=== PATIENT | female | born 1995 | race Caucasian/White ===

== ENCOUNTER 2023-08-18 22:38 | Inpatient (IN) | payer BC ==
[~2023-08-18] VITALS: Ht 154.9 cm; Wt 68.2 kg
[~2023-08-18 22:38] MED LIST: IBU600 MG PO; NO HOME MEDICATIONS; PRENATAL TABLET PO; VALTREX 50500 MG/TAB PO
--- NOTE | 2023-08-18 22:40 | NUR ---
PATIENT AMBULATORY TO UNIT WITH SPOUSE. PATIENT STATES SHE FELT LIKE HER WATER BROKE AROUND 2129 WITH CLEAR FLUID. DENIES VAGINAL BLEEDING BUT "THINKS SHE MIGHT BE HAVING CONTRACTIONS".PATIENT CHANGED INTO HOSPITAL GOWN. [id number].
[2023-08-18] MEDS ORDERED: LR 1,000 ML IV PRN (23:00)
--- NOTE | 2023-08-18 23:10 | NUR ---
2310-NURSE AT BEDSIDE STARTING IV. MONITOR TRACING MOTHER HEART RATE. MONITORS ADJUSTED.
[2023-08-18 23:15] VITALS: BP 121/70; PULSE 89; TEMP 98.2
[2023-08-18] MEDS ORDERED: LR & Oxytocin 500 ML IV SCH (23:30)
[2023-08-18] MEDS ORDERED: LR 1,000 ML IV SCH (23:30)
[2023-08-18 23:41] LABS: BASO % 0.3 % (0.0-2.0); EOS # 0.1 K/mm3 (0.0-0.7); EOS % 0.7 % (0.0-4.0); GRAN # 6.4 K/mm3 (1.4-6.5); GRAN % 62.3 % (42.2-75.2); HEMATOCRIT 37.9 % (37.0-47.0); HEMOGLOBIN 12.7 g/dl (12.5-16.0); LYMPH # 2.9 K/mm3 (1.2-3.4); MEAN CELL VOLUME 92 fl (80.0-100.0); MEAN CORPUSCULAR HEMOGLOBIN 31 pg (27-31); MEAN CORPUSCULAR HGB CONC 34 g/dl (33.0-37.0); MONO # 0.8 K/mm3 (0.1-0.6); MONO % 8.1 % (1.7-9.3); PLATELET COUNT 244 K/mm3 (130-400); RED BLOOD COUNT 4.12 M/mm3 (4.10-5.30); REDCELL DISTRIBUTION WIDTH-CV 12.9 % (11.5-14.5)
[2023-08-19] VITALS (39 sets, daily range): BP systolic 91–149; BP diastolic 53–97; PULSE 61–122; TEMP 97.6–98.2
--- NOTE | 2023-08-19 02:50 | NUR ---
0235- PATIENT AMBLATORY ON UNIT 0250- PATIENT VOIDED AND ASSISTED BACK TO BED. [id number]
[2023-08-19] MEDS ORDERED: ROPivacaine PF 0.2% 200 ML IV ONE (05:06)
--- NOTE | 2023-08-19 05:30 | NUR ---
0508- PATIENT SITTING ON EDGE OF BED. PULSE OX APPLIED. 0513- TRUDY LILLY AT BEDSIDE EXPLAINING PROCEDURE TO PATIENT. 0523- TEST DOSE ADMINISTERED BY TRUDY LILLY. 0530- PATIENT ASSISTED TO LEFT WEDGE. PLAN OF CARE EXPLAINED TO PATIENT AND SPOUSE. QUESTIONS INVITED AND ANSWERED.
[2023-08-19] MEDS ORDERED: ePHEDrine 50 MG/10 ML VIAL IV PRN (05:45)
[2023-08-19] MEDS ORDERED: Ondansetron 4 MG/2 ML VIAL IV PRN (05:45)
[2023-08-19] MEDS ORDERED: Naloxone 0.4 MG/ML VIAL IV PRN ×2 (05:45→10:45)
[2023-08-19] MEDS ORDERED: diphenhydrAMINE 50 MG/ML 1 ML VIAL IV PRN (05:45)
[2023-08-19] MEDS ORDERED: diphenhydrAMINE 25 MG CAP PO PRN (05:45)
--- NOTE | 2023-08-19 06:45 | NUR ---
DUE TO PT POSITION, TOCO TRACING WAS DIFFICULT. TOCO READJUSTED SEVERAL TIMES.
--- NOTE | 2023-08-19 08:34 | NUR ---
0825- DR MCGEE ON UNIT AND AT BEDSIDE. SVE PT COMPLETE. 0831- PT BEGAN PUSHING. 0834- SPONATNEOUS VAGINAL DELIVERY OF A VIABLE BABY BOY DELIVERED BY DR DAILEY. NUCHUL X1. BABY WAS PLACED ON MOM'S CHEST AND CARE OF BABY WAS TAKEN OVER BY NURSERY NURSE SHERWIN. FOB CUT THE CORD. BABY WAS DRIED AND STIMULATED. 0838- SPONTANEOUS DELIVERY OF THE PLACENTA. PITOCIN STARTED PER PROTOCOL. SECOND DEGREE REPAIR BY DR MCGEE. BLEEDING MINIMAL. VS STABLE. QBL 100.
[2023-08-19] MEDS ORDERED: Magnes Hydrox (MOM) 80 MG/ML 30 ML CUP PO PRN (09:00)
[2023-08-19] MEDS ORDERED: Prenatal Vitamins/Iron/FA TAB PO SCH (09:00)
[2023-08-19] MEDS ORDERED: Loratadine 10 MG TAB PO PRN (09:00)
[2023-08-19] MEDS ORDERED: Ibuprofen 600 MG TAB PO SCH (10:45)
[2023-08-19] MEDS ORDERED: Witch Hazel 50% Pads Bulk TUB TP PRN (10:45)
[2023-08-19] MEDS ORDERED: Acetaminophen 500 MG TAB PO SCH (10:45)
[2023-08-19] MEDS ORDERED: Phenylephrine/Mineral Oil/Petrolatum 57 GM TUBE RC PRN (10:45)
[2023-08-19] MEDS ORDERED: oxyCODONE 5 MG TAB PO PRN (10:45)
[2023-08-19] MEDS ORDERED: Measles/Mumps/Rubella Virus Vaccine Live w Diluent 0.5 ML VIAL SQ SCH (10:45)
[2023-08-19] MEDS ORDERED: Mag/Al Hydrox/Simeth Susp 30 ML CUP PO PRN (10:45)
--- NOTE | 2023-08-19 13:00 | NUR ---
THIS RN, LINDSAY, ASSUMES CARE OF PT. RECEIVED REPORT FROM ROBI MAYES.
[2023-08-19] MEDS ORDERED: Sennosides/Docusate 8.6-50 MG TAB PO SCH (17:00)
--- NOTE | 2023-08-19 19:30 | NUR ---
1930-K-PAD TO ROOM FOR PT TO USE ON ABDOMEN FOR UTERINE CRAMPS.
[2023-08-19] MEDS ORDERED: traZODone 50 MG TAB PO PRN (21:00)
[2023-08-20 01:25] VITALS: BP 103/52; PULSE 62; TEMP 98.1
[2023-08-20 04:50] LABS: HEMOGLOBIN 11.2 g/dl (12.5-16.0)
[2023-08-20 04:55] LABS: HEMATOCRIT 33.7 % (37.0-47.0)
[2023-08-20] MEDS ORDERED: IBU600 MG PO (06:20)
[2023-08-20] MEDS ORDERED: TYLENOL 500MG500 MG PO (06:20)
[2023-08-20 08:30] VITALS: BP 111/64; PULSE 93; TEMP 98.3
== END 2023-08-20 11:40 | disposition home or self-care (01) | DRG 807 ==
LOC: LDRO 22:38 → LDR 23:18 → OB 08-19 12:00
PROVIDERS: Obstetrics & Gynecology; ADMIT Obstetrics & Gynecology
PROC: 10E0XZZ Delivery of Products of Conception, External Approach (ICD-10-PCS; principal; 2023-08-19)
PROC: 0KQM0ZZ Repair Perineum Muscle, Open Approach (ICD-10-PCS; 2023-08-19)
DX: O69.81X0 Labor and delivery complicated by cord around neck, without compression, not applicable or unspecified (principal); Z37.0 Single live birth; Z3A.39 39 weeks gestation of pregnancy; O70.1 Second degree perineal laceration during delivery; Z23 Encounter for immunization
CPT/HCPCS: J2590; J2795; J7120